=== PATIENT | male | born 1985 | race Caucasian/White ===

== ENCOUNTER 2022-06-29 06:05 | Observation (INO) ==
[2022-06-29 06:22] VITALS: BMI 31.1
[2022-06-29] MEDS ORDERED: ZOFRAN INJ 4 MG VIAL IVP ONE ×2 (06:24→06:58)
--- NOTE | 2022-06-29 06:25 | DR.CP ---
HPI <Marleni Coleman - Last Filed: 06/30/22 20:59> Time Seen Time Seen by Provider: 06/29/22 06:24 HPI Comment HPI Comment: In w/ reporting waking around 0300 this morning with epigastric/lower chest wall pain extending around to back, constant, 10/10 with n/v and one "soft" stool; no significant burping; no cough, fever, chills, previous episodes or alcohol since this past Monday; he tried baking soda and threw it back up; he does not smoke Complaint Chief Complaint:: Patient stated he's hurting in his epigastic area and around to his back and vomitting since 3am this morining COVID-19 Coronavirus risk:travel/contact w/high risk person: No Has patient experienced Coronavirus symptoms: No Source History Provided: Patient Mode of Arrival Mode of Arrival: Ambulatory Timing Onset of Chief Complaint: 06/29/22 PMH <Marleni Coleman - Last Filed: 06/30/22 20:59> PMH Past Medical History: No Past Surgical History: Yes Surgical History: Ortho Surgery Family History History of Family Medical Conditions: Yes Family Medical History: Diabetes Mellitus, Cancer, [place] and Hypertension Social History Does patient currently use any type of tobacco product: No Type of Tobacco Use: Smokeless Does any household member use tobacco: No Alcohol Use: None Do you use any recreational Drugs:: No Lives With: Spouse Lives Where: Home Travel Risk Coronavirus risk:travel/contact w/high risk person: No Has patient experienced Coronavirus symptoms: No Infectious screening In the last 2 months have you had wt loss of >10#?: NO Have you had fever, night sweats or hemotysis?: No Have you traveled outside the country in the last 6 months?: No Isolation: Standard ROS <Marleni Coleman - Last Filed: 06/30/22 20:59> Review of Systems Constitutional: No Symptoms Reported Eyes: No Symptoms Reported ENTM: No Symptoms Reported Respiratoy: No Symptoms Reported Cardiovascular: No Symptoms Reported Gastrointestinal/Abdominal: See HPI Genitourinary: No Symptoms Reported Neurological: No Symptoms Reported Musculoskeletal: No Symptoms Reported Integumentary: No Symptoms Reported Hematologic/Lymphatic: No Symptoms Reported Endocrine: No Symptoms Reported Psychiatric: No Symptoms Reported PE <Marleni Coleman - Last Filed: 06/30/22 20:59> Vitals Vitals: Temperature 98.4 F Pulse Rate [Left Brachial] 78 Pulse Rate 84 Respiratory Rate 20 Blood Pressure [Left Arm] 146/85 Blood Pressure 139/89 O2 Sat by Pulse Oximetry 98 General Limitations: No Limitations General Appearance: Alert, Anxious and Other (standing, moving around in obvious discomfort) Head Head Exam: Normal Inspection Eyes Eye exam: Normal Appearance ENT ENT Exam: Normal Exam Chest Chest Inspection: Normal Inspection Respiratory Respiratory Exam: Normal Lung Sounds Bilat Cardiovascular Cardiovascular Exam: Regular Rate and Normal Rhythm Pulse: Normal Edema: Normal Abdominal Exam Abdominal Exam: Normal Inspection, Normal Bowel Sounds and Soft Abdominal Tenderness: Epigastrium and Moderate Extremities Extremities Exam: Normal Inspection Back Back Exam: Normal Inspection Neurologic Neurological Exam: Alert and Oriented X3 Psychiatric Psychiatric Exam: Normal Affect and Normal Mood Skin Skin Exam: Warm, Dry, Intact and Normal Color <Gerry Narvaez - Last Filed: 06/29/22 12:09> Vitals Vitals: Temperature 98.4 F Pulse Rate [Left Brachial] 78 Pulse Rate 84 Respiratory Rate 20 Blood Pressure [Left Arm] 146/85 Blood Pressure 139/89 O2 Sat by Pulse Oximetry 98 COURSE <Marlnei Coleman - Last Filed: 06/30/22 20:59> Treatment Treatment: 0750 36 y/o nonsmoker with last etoh five days ago presents with sev ere epigastric pain radiating to back and n/v; improved w/morphine 4mg and zofran 8mg total; cardiac enzymes and lipase negative; ua pending; care to Dr Narvaez. Reevaluation 1st: Unchanged ROR <Marleni Coleman - Last Filed: 06/30/22 20:59> Labs Reviewed Laboratory Results Reviewed?: Yes Result Diagrams: 06/30/22 05:28 06/30/22 05:28 Laboratory: WBC 7.3 X10^3/uL (3.6-10.0) 06/29/22 06:34 RBC 5.38 X10^6/uL (4.7-6.0) 06/29/22 06:34 Hgb 15.6 g/dL (13.5-18.0) 06/29/22 06:34 Hct 43.9 % (42.0-54.0) 06/29/22 06:34 MCV 81.6 fL (80.0-100.0) 06/29/22 06:34 MCH 28.9 pg (27.0-34.0) 06/29/22 06:34 MCHC 35.5 g/dL (33.0-35.0) H 06/29/22 06:34 RDW 13.1 % (11.6-16.5) 06/29/22 06:34 Plt Count 205 X10^3/uL (150.0-450.0) 06/29/22 06:34 MPV 7.5 fL (7.4-11.0) 06/29/22 06:34 Neut % (Auto) 71.0 % (42.0-75.0) 06/29/22 06:34 Lymph % (Auto) 23.0 % (21.0-51.0) 06/29/22 06:34 [place] % (Auto) 4.6 % (0.0-13.0) 06/29/22 06:34 Eos % (Auto) 0.9 % (0.9-2.9) 06/29/22 06:34 Baso % (Auto) 0.5 % (0.2-1.0) 06/29/22 06:34 Neut # (Auto) 5.2 x10^3/uL (2.2-4.8) H 06/29/22 06:34 Lymph # (Auto) 1.7 X10^3/uL (1.3-2.9) 06/29/22 06:34 [place] # (Auto) 0.3 x10^3/uL (0.3-0.8) 06/29/22 06:34 Eos # (Auto) 0.1 x10^3/uL (0.0-0.2) 06/29/22 06:34 Baso # (Auto) 0.0 X10^3/uL (0.0-0.1) 06/29/22 06:34 Absolute Nucleated RBC 0.0 /100WBC 06/29/22 06:34 Sodium 143 mmol/L (136-145) 06/29/22 06:34 Corrected Sodium 144 mmol/L (136-145) 06/29/22 06:34 Potassium 3.5 mmol/L (3.5-5.1) 06/29/22 06:34 Chloride 104 mmol/L (98-107) 06/29/22 06:34 Carbon Dioxide 29.2 mmol/L (21-32) 06/29/22 06:34 BUN 16 mg/dL (7-18) 06/29/22 06:34 Creatinine 1.45 mg/dL (0.70-1.30) H 06/29/22 06:34 Est GFR (MDRD) Af Amer > 60 (>60) 06/29/22 06:34 Est GFR (MDRD) Non-Af 58 (>60) L 06/29/22 06:34 Glucose 139 mg/dL (65-99) H 06/29/22 06:34 Calcium 8.7 mg/dL (8.5-10.1) 06/29/22 06:34 Corrected Calcium TNP 06/29/22 06:34 Total Bilirubin 0.60 mg/dL (0.2-1.0) 06/29/22 06:34 AST 21 Units/L (15-37) 06/29/22 06:34 ALT 34 Units/L (12-78) 06/29/22 06:34 Alkaline Phosphatase 59 Units/L (46-116) 06/29/22 06:34 Creatine Kinase 135 Units/L (39-308) 06/29/22 06:34 Troponin I High Sens 9.1 ng/L (4.0-60.0) 06/29/22 06:34 Total Protein 7.6 g/dL (6.4-8.2) 06/29/22 06:34 Albumin 4.3 g/dL (3.4-5.0) 06/29/22 06:34 Globulin 3.3 g/dL (2.5-4.5) 06/29/22 06:34 Albumin/Globulin Ratio 1.3 Ratio (1.1-2.1) 06/29/22 06:34 Lipase 70 Units/L (73-393) L 06/29/22 06:34 Specimen Type Clean catch urine 06/29/22 07:45 Urine Color Yellow (YELLOW) 06/29/22 07:45 Urine Appearance Clear (CLEAR) 06/29/22 07:45 Urine pH 6.0 (5.0 - 8.0) 06/29/22 07:45 Ur Specific [place] 1.025 (1.000-1.030) 06/29/22 07:45 Urine Protein 2+ (NEGATIVE) 06/29/22 07:45 Urine Glucose (UA) Negative (NEGATIVE) 06/29/22 07:45 Urine Ketones Negative (NEGATIVE) 06/29/22 07:45 Urine Blood 1+ (NEGATIVE) 06/29/22 07:45 Urine Nitrite Negative (NEGATIVE) 06/29/22 07:45 Urine Bilirubin Negative (NEGATIVE) 06/29/22 07:45 Urine Urobilinogen Normal (NORMAL) 06/29/22 07:45 Ur Leukocyte Esterase Negative (NEGATIVE) 06/29/22 07:45 Urine RBC 0-2 /HPF (0-3) 06/29/22 07:45 Urine WBC 0-2 /HPF (0-5) 06/29/22 07:45 Ur Squamous Epith Cells Rare /HPF (NEGATIVE) 06/29/22 07:45 Calcium Oxalate Crystal Numerous /HPF (NEGATIVE) 06/29/22 07:45 Urine Bacteria Negative /HPF (NEGATIVE) 06/29/22 07:45 Ur Culture Indicated? No/not indicated 06/29/22 07:45 XRAY X-ray Results: cxr: 1. No acute cardiopulmonary process. gb us: 1.Small gallstones without evidence of acute gallbladder inflammation. ct abd/pelvis: Subtle densities in the gallbladder suspicious for cholelithiasis. Consider right upper quadrant ultrasound for further evaluation as clinically warranted. <Gerry Narvaez - Last Filed: 06/29/22 12:09> Labs Reviewed Laboratory: WBC 7.3 X10^3/uL (3.6-10.0) 06/29/22 06:34 RBC 5.38 X10^6/uL (4.7-6.0) 06/29/22 06:34 Hgb 15.6 g/dL (13.5-18.0) 06/29/22 06:34 Hct 43.9 % (42.0-54.0) 06/29/22 06:34 MCV 81.6 fL (80.0-100.0) 06/29/22 06:34 MCH 28.9 pg (27.0-34.0) 06/29/22 06:34 MCHC 35.5 g/dL (33.0-35.0) H 06/29/22 06:34 RDW 13.1 % (11.6-16.5) 06/29/22 06:34 Plt Count 205 X10^3/uL (150.0-450.0) 06/29/22 06:34 MPV 7.5 fL (7.4-11.0) 06/29/22 06:34 Neut % (Auto) 71.0 % (42.0-75.0) 06/29/22 06:34 Lymph % (Auto) 23.0 % (21.0-51.0) 06/29/22 06:34 [place] % (Auto) 4.6 % (0.0-13.0) 06/29/22 06:34 Eos % (Auto) 0.9 % (0.9-2.9) 06/29/22 06:34 Baso % (Auto) 0.5 % (0.2-1.0) 06/29/22 06:34 Neut # (Auto) 5.2 x10^3/uL (2.2-4.8) H 06/29/22 06:34 Lymph # (Auto) 1.7 X10^3/uL (1.3-2.9) 06/29/22 06:34 [place] # (Auto) 0.3 x10^3/uL (0.3-0.8) 06/29/22 06:34 Eos # (Auto) 0.1 x10^3/uL (0.0-0.2) 06/29/22 06:34 Baso # (Auto) 0.0 X10^3/uL (0.0-0.1) 06/29/22 06:34 Absolute Nucleated RBC 0.0 /100WBC 06/29/22 06:34 Sodium 143 mmol/L (136-145) 06/29/22 06:34 Corrected Sodium 144 mmol/L (136-145) 06/29/22 06:34 Potassium 3.5 mmol/L (3.5-5.1) 06/29/22 06:34 Chloride 104 mmol/L (98-107) 06/29/22 06:34 Carbon Dioxide 29.2 mmol/L (21-32) 06/29/22 06:34 BUN 16 mg/dL (7-18) 06/29/22 06:34 Creatinine 1.45 mg/dL (0.70-1.30) H 06/29/22 06:34 Est GFR (MDRD) Af Amer > 60 (>60) 06/29/22 06:34 Est GFR (MDRD) Non-Af 58 (>60) L 06/29/22 06:34 Glucose 139 mg/dL (65-99) H 06/29/22 06:34 Calcium 8.7 mg/dL (8.5-10.1) 06/29/22 06:34 Corrected Calcium TNP 06/29/22 06:34 Total Bilirubin 0.60 mg/dL (0.2-1.0) 06/29/22 06:34 AST 21 Units/L (15-37) 06/29/22 06:34 ALT 34 Units/L (12-78) 06/29/22 06:34 Alkaline Phosphatase 59 Units/L (46-116) 06/29/22 06:34 Creatine Kinase 135 Units/L (39-308) 06/29/22 06:34 Troponin I High Sens 9.1 ng/L (4.0-60.0) 06/29/22 06:34 Total Protein 7.6 g/dL (6.4-8.2) 06/29/22 06:34 Albumin 4.3 g/dL (3.4-5.0) 06/29/22 06:34 Globulin 3.3 g/dL (2.5-4.5) 06/29/22 06:34 Albumin/Globulin Ratio 1.3 Ratio (1.1-2.1) 06/29/22 06:34 Lipase 70 Units/L (73-393) L 06/29/22 06:34 Specimen Type Clean catch urine 06/29/22 07:45 Urine Color Yellow (YELLOW) 06/29/22 07:45 Urine Appearance Clear (CLEAR) 06/29/22 07:45 Urine pH 6.0 (5.0 - 8.0) 06/29/22 07:45 Ur Specific [place] 1.025 (1.000-1.030) 06/29/22 07:45 Urine Protein 2+ (NEGATIVE) 06/29/22 07:45 Urine Glucose (UA) Negative (NEGATIVE) 06/29/22 07:45 Urine Ketones Negative (NEGATIVE) 06/29/22 07:45 Urine Blood 1+ (NEGATIVE) 06/29/22 07:45 Urine Nitrite Negative (NEGATIVE) 06/29/22 07:45 Urine Bilirubin Negative (NEGATIVE) 06/29/22 07:45 Urine Urobilinogen Normal (NORMAL) 06/29/22 07:45 Ur Leukocyte Esterase Negative (NEGATIVE) 06/29/22 07:45 Urine RBC 0-2 /HPF (0-3) 06/29/22 07:45 Urine WBC 0-2 /HPF (0-5) 06/29/22 07:45 Ur Squamous Epith Cells Rare /HPF (NEGATIVE) 06/29/22 07:45 Calcium Oxalate Crystal Numerous /HPF (NEGATIVE) 06/29/22 07:45 Urine Bacteria Negative /HPF (NEGATIVE) 06/29/22 07:45 Ur Culture Indicated? No/not indicated 06/29/22 07:45 Opioid <Marleni Coleman - Last Filed: 06/30/22 20:59> Opioid Risk Tool Age (Tony box if 16-45): Yes History of Preadolescent Sexual Abuse: No Total: 1 Total Score Risk Category: Low Risk Copyright: Yonny FREY predicting aberrant behaviors <Gerry Narvaez - Last Filed: 06/29/22 12:09> Opioid Risk Tool Total: 1 Total Score Risk Category: Low Risk Discharge Plan Diagnosis Discharge Problem: Epigastric pain, Cholelithiasis Discharge Plan Patient Disposition: ADMITTED INPATIENT Condition: Stable Orders to Discharge Patient Discharge Orders: Discharge (Routine); Ordered 06/30/22 Ordered By: DONALD DAVIS
[2022-06-29] MEDS ORDERED: ZOFRAN INJ 4 MG VIAL ONE ×3 (06:28→15:26)
--- NOTE | 2022-06-29 06:36 | EKG ---
Test Reason : cp/epigastric pain Blood Pressure : */* mmHG Vent. Rate : 72 BPM Atrial Rate : 72 BPM P-R Int : 148 ms QRS Dur : 102 ms QT Int : 408 ms P-R-T Axes : 45 39 6 degrees QTc Int : 446 ms Normal sinus rhythm Possible Inferior infarct , age undetermined Abnormal ECG No previous ECGs available Confirmed by Vance Apodaca ([id number]) on 06/30/2022 1:17:10 PM Referred By: Confirmed By: Vance Apodaca
[2022-06-29] MEDS ORDERED: MORPHINE SULFATE INJ 2 MG INJ ONE ×2 (06:38→07:02)
[2022-06-29] MEDS: MORPHINE SULFATE INJ 2 MG INJ IVP ONE ×2 (06:42→06:43)
[2022-06-29 06:44] LABS: BASOPHILS % (AUTO) 0.5 % (0.2-1.0); EOSINOPHILS # (AUTO) 0.1 x10^3/uL (0.0-0.2); EOSINOPHILS % (AUTO) 0.9 % (0.9-2.9); HEMATOCRIT 43.9 % (42.0-54.0); HEMOGLOBIN 15.6 g/dL (13.5-18.0); LYMPHOCYTES # (AUTO) 1.7 X10^3/uL (1.3-2.9); MEAN CORPUSCULAR HEMOGLOBIN 28.9 pg (27.0-34.0); MEAN CORPUSCULAR HGB CONC 35.5 g/dL (33.0-35.0); MEAN CORPUSCULAR VOLUME 81.6 fL (80.0-100.0); MEAN PLATELET VOLUME 7.5 fL (7.4-11.0); MONOCYTES # (AUTO) 0.3 x10^3/uL (0.3-0.8); MONOCYTES % (AUTO) 4.6 % (0.0-13.0); NEUTROPHILS # (AUTO) 5.2 x10^3/uL (2.2-4.8); RED BLOOD COUNT 5.38 X10^6/uL (4.7-6.0); RED CELL DISTRIBUTION WIDTH 13.1 % (11.6-16.5); WHITE BLOOD COUNT 7.3 X10^3/uL (3.6-10.0)
[2022-06-29 06:56] LABS: ALANINE AMINOTRANSFERASE 34 Units/L (12-78); ALBUMIN 4.3 g/dL (3.4-5.0); ALKALINE PHOSPHATASE 59 Units/L (46-116); ASPARTATE AMINO TRANSFERASE 21 Units/L (15-37); BLOOD UREA NITROGEN 16 mg/dL (7-18); CALCIUM 8.7 mg/dL (8.5-10.1); CARBON DIOXIDE 29.2 mmol/L (21-32); CHLORIDE 104 mmol/L (98-107); COR NA(FOR HYPERGLY) 144 mmol/L (136-145); CREATINE KINASE 135 Units/L (39-308); CREATININE 1.45 mg/dL (0.70-1.30); LIPASE 70 Units/L (73-393); SODIUM 143 mmol/L (136-145); TOTAL PROTEIN 7.6 g/dL (6.4-8.2); eGFR NON BLACK RACES 58 (>60)
[2022-06-29] MEDS ORDERED: MORPHINE SULFATE INJ 2 MG INJ IVP ONE (06:56)
[2022-06-29] MEDS ORDERED: NS 1,000 ML IV 1,000 ML IV ONE (06:58)
[2022-06-29] MEDS ORDERED: NS 1,000 ML IV 1,000 ML ONE (07:02)
[2022-06-29 08:01] LABS: BILIRUBIN,URINE NEGATIVE (NEGATIVE); BLOOD/HEMOGLOBIN,URINE 1+ (NEGATIVE); GLUCOSE, URINE NEGATIVE (NEGATIVE); KETONES,URINE NEGATIVE (NEGATIVE); LEUKOCYTE ESTERASE ,URINE NEGATIVE (NEGATIVE); NITRITES,URINE NEGATIVE (NEGATIVE); PROTEIN,URINE 2+ (NEGATIVE); UROBILINOGEN,URINE NORMAL (NORMAL)
[2022-06-29] MEDS ORDERED: NS 100 ML IV 100 ML ONE ×2 (08:25→14:22)
[2022-06-29 08:26] LABS: APPEARANCE,URINE CLEAR (CLEAR); COLOR,URINE YELLOW (YELLOW)
[2022-06-29 08:27] LABS: BACTERIA,URINE NEGATIVE /HPF (NEGATIVE); CALCIUM OXALATE CRYSTALS,UR NUMEROUS /HPF (NEGATIVE); RBC,URINE 0-2 /HPF (0-3); SQUAMOUS EPITHELIAL CELL,UR RARE /HPF (NEGATIVE)
--- NOTE | 2022-06-29 08:57 | CT ---
HISTORYEPIGASTRIC PAINSTUDYABDOMEN/PELVIS WITH CONCOMPARISONNone.TECHNIQUEMultiple axial images of the abdomen and pelvis were obtained from the lung bases to the pubic symphysis after the administration of IV contrast. Dose reduction techniques including Automated Exposure Control (AEC) and adjustment of mA and kV were utilized.FINDINGSLung bases demonstrate minimal subsegmental atelectasis. The heart is normal in size. There are subtle density within the gallbladder suspicious for cholelithiasis. The liver, spleen, pancreas, adrenal glands, and kidneys have a benign appearance. There is the right upper pole renal cyst that measures 8 mm image 34 series 3. The urinary bladder appears benign. The prostate is normal in size. Negative for diverticulitis. The appendix is normal. Negative for bowel obstruction. Non-atherosclerotic normal caliber abdominal aorta. Portal vein is patent. No pathologic adenopathy. No free air, free fluid or collection. No acute osseous abnormality.IMPRESSIONSubtle densities in the gallbladder suspicious for cholelithiasis. Consider right upper quadrant ultrasound for further evaluation as clinically warrantedElectronically signed by: Dao Mcdaniels (Jun 29, 2022 08:56:25)
--- NOTE | 2022-06-29 09:27 | DR.ABDMALE ---
HPI Time seen Time Seen by Provider: 06/29/22 06:24 Complaint Chief Complaint Doctors Comments: THIS PATIENT WAS SIGNED OUT TO ME BY DR MOCTEZUMA. HE STATES THAT HE HAS HAD RUQ ABDOMINAL PAIN SINCE 3 AM THAT IS 6 AND 1/2 HOURS AGO. ALSO HAS NAUSEA.HAD BEEN GIVE 6MG MORPHINE IV PRIOR TO MY EVALUATION FOR PAIN. I ORDERED A CT OF ABD/PELVIS WITH IV CONTRAST AND HE HAD STONES IN THE GALLBLADDER. AN ULTRASOUND OF RUQ WAS THEN ORDERED. Chief Complaint:: Patient stated he's hurting in his epigastic area and around to his back and vomitting since 3am this morining COVID-19 Coronavirus risk:travel/contact w/high risk person: No Has patient experienced Coronavirus symptoms: No Mode of arrival Mode of Arrival: Ambulatory Timing Onset of Chief Complaint: 06/29/22 PMH PMH Past Medical History: No Past Surgical History: Yes Surgical History: Ortho Surgery Family History History of Family Medical Conditions: Yes Family Medical History: Diabetes Mellitus, Cancer, [place] and Hypertension Social History Does patient currently use any type of tobacco product: No Type of Tobacco Use: Smokeless Does any household member use tobacco: No Alcohol Use: None Do you use any recreational Drugs:: No Lives With: Spouse Lives Where: Home Travel Risk Coronavirus risk:travel/contact w/high risk person: No Has patient experienced Coronavirus symptoms: No Infectious screening In the last 2 months have you had wt loss of >10#?: NO Have you had fever, night sweats or hemotysis?: No Have you traveled outside the country in the last 6 months?: No Isolation: Standard ROS Review of Systems Constitutional: Other (ABDOMINAL PAIN WITH NAUSEA.) Eyes: No Symptoms Reported ENTM: No Symptoms Reported Respiratoy: No Symptoms Reported Cardiovascular: No Symptoms Reported Gastrointestinal/Abdominal: Abdominal Pain and Nausea Genitourinary: No Symptoms Reported Neurological: No Symptoms Reported Musculoskeletal: No Symptoms Reported Integumentary: No Symptoms Reported Hematologic/Lymphatic: No Symptoms Reported Endocrine: No Symptoms Reported Psychiatric: No Symptoms Reported PE Vital Signs Vital Signs: Temp Pulse Pulse Resp BP BP Pulse Ox 06/29/22 12:00 98.4 F 78 20 146/85 98 06/29/22 10:42 98.6 F 06/29/22 07:11 22 06/29/22 06:43 22 06/29/22 06:17 98.9 F 84 24 139/89 99 O2 Del Method 06/29/22 12:00 Room Air 06/29/22 10:42 06/29/22 07:11 06/29/22 06:43 06/29/22 06:17 Room Air General Limitations: No Limitations General Appearance: In Distress (MODERATE DISTRESS) Head Head Exam: Normal Inspection, Atraumatic and Normocephalic Eyes Eye exam: Normal Appearance, PERRL and EOMI ENT ENT Exam: Normal Exam, Normal Oropharynx and Normal External Ear Exam Neck Neck Exam: Normal Inspection, Full ROM and Trachea Midline Chest Chest Inspection: Normal Inspection and Symmetric Chest Wall Rise Respiratory Respiratory Exam: Normal Lung Sounds Bilat Respiratory Exam: Bilateral: Clear to Auscultation Cardiovascular Cardiovascular Exam: Regular Rate and Normal Rhythm Abdominal Exam Abdominal Exam: Soft and Tenderness (RUQ) Abdominal Tenderness: RUQ Rectal Rectal Exam: Deferred Back Back Exam: Normal Inspection and Full ROM Extremeties Extremities Exam: Normal Inspection and Full ROM Exam: Male: Deferred Neurologic Neurological Exam: Alert and CN II-XII Intact Skin Skin Exam: Warm, Dry and Intact MDM Differential Diagnosis Differential Diagnosis: Cholcystitis, Cholelethiasis and Gastritus/PUD COURSE Treatment Treatment: PATIENT CONTINUED TO HAVE ABDOMINAL PAIN AND NAUSEA ANFER 6MG OF MORPHINE IV AND ZOFRAN 4MG IV. HE HAD ACT OF ABD/PELVIS THAT SHOWED GALLSTONE. HE SUBSEQUENTLY HAD US OR RUQ THAT SHOWED MANY GALLSTONES BUT NO DILITATION OF THE BILE DUCT. DR NINA WAS CALLED AT 1035 AND HE INITIALLY STATED TO DISCHARGE THE PATIENT ON PROTONIX AND PAIN MEDICATIONS SINCE HE WAS AFEBRILE AND DID NOT HAVE ELEVATED WBC. THE PATIENT CONTINUED TO HAVE INCREASED PAIN AND NAUSEA AND DR NINA WAS CALLED BACK AND HE STATED TO PUT THE PATIENT IN THE HOSPITAL AND GIVE FLUIDS,ZOFRAN AND PAIN MEDCATION AND GET A CHEST XRAY AND EKG. THE EKG WAS NSR AND THE CHEST XRAY WAS NORMAL. THE PATIENT IS REFERED TO OBSERVATION TO DR NINA.THE PATIENT WAS TOLD OF THE INTENT AND IS AGGREABLE TO THE OBSERVATION. ROR Labs Reviewed Laboratory Results Reviewed?: Yes Result Diagrams: 06/30/22 05:28 06/30/22 05:28 Laboratory: WBC 7.3 X10^3/uL (3.6-10.0) 06/29/22 06:34 RBC 5.38 X10^6/uL (4.7-6.0) 06/29/22 06:34 Hgb 15.6 g/dL (13.5-18.0) 06/29/22 06:34 Hct 43.9 % (42.0-54.0) 06/29/22 06:34 MCV 81.6 fL (80.0-100.0) 06/29/22 06:34 MCH 28.9 pg (27.0-34.0) 06/29/22 06:34 MCHC 35.5 g/dL (33.0-35.0) H 06/29/22 06:34 RDW 13.1 % (11.6-16.5) 06/29/22 06:34 Plt Count 205 X10^3/uL (150.0-450.0) 06/29/22 06:34 MPV 7.5 fL (7.4-11.0) 06/29/22 06:34 Neut % (Auto) 71.0 % (42.0-75.0) 06/29/22 06:34 Lymph % (Auto) 23.0 % (21.0-51.0) 06/29/22 06:34 [place] % (Auto) 4.6 % (0.0-13.0) 06/29/22 06:34 Eos % (Auto) 0.9 % (0.9-2.9) 06/29/22 06:34 Baso % (Auto) 0.5 % (0.2-1.0) 06/29/22 06:34 Neut # (Auto) 5.2 x10^3/uL (2.2-4.8) H 06/29/22 06:34 Lymph # (Auto) 1.7 X10^3/uL (1.3-2.9) 06/29/22 06:34 [place] # (Auto) 0.3 x10^3/uL (0.3-0.8) 06/29/22 06:34 Eos # (Auto) 0.1 x10^3/uL (0.0-0.2) 06/29/22 06:34 Baso # (Auto) 0.0 X10^3/uL (0.0-0.1) 06/29/22 06:34 Absolute Nucleated RBC 0.0 /100WBC 06/29/22 06:34 Sodium 143 mmol/L (136-145) 06/29/22 06:34 Corrected Sodium 144 mmol/L (136-145) 06/29/22 06:34 Potassium 3.5 mmol/L (3.5-5.1) 06/29/22 06:34 Chloride 104 mmol/L (98-107) 06/29/22 06:34 Carbon Dioxide 29.2 mmol/L (21-32) 06/29/22 06:34 BUN 16 mg/dL (7-18) 06/29/22 06:34 Creatinine 1.45 mg/dL (0.70-1.30) H 06/29/22 06:34 Est GFR (MDRD) Af Amer > 60 (>60) 06/29/22 06:34 Est GFR (MDRD) Non-Af 58 (>60) L 06/29/22 06:34 Glucose 139 mg/dL (65-99) H 06/29/22 06:34 Calcium 8.7 mg/dL (8.5-10.1) 06/29/22 06:34 Corrected Calcium TNP 06/29/22 06:34 Total Bilirubin 0.60 mg/dL (0.2-1.0) 06/29/22 06:34 AST 21 Units/L (15-37) 06/29/22 06:34 ALT 34 Units/L (12-78) 06/29/22 06:34 Alkaline Phosphatase 59 Units/L (46-116) 06/29/22 06:34 Creatine Kinase 135 Units/L (39-308) 06/29/22 06:34 Troponin I High Sens 9.1 ng/L (4.0-60.0) 06/29/22 06:34 Total Protein 7.6 g/dL (6.4-8.2) 06/29/22 06:34 Albumin 4.3 g/dL (3.4-5.0) 06/29/22 06:34 Globulin 3.3 g/dL (2.5-4.5) 06/29/22 06:34 Albumin/Globulin Ratio 1.3 Ratio (1.1-2.1) 06/29/22 06:34 Lipase 70 Units/L (73-393) L 06/29/22 06:34 Specimen Type Clean catch urine 06/29/22 07:45 Urine Color Yellow (YELLOW) 06/29/22 07:45 Urine Appearance Clear (CLEAR) 06/29/22 07:45 Urine pH 6.0 (5.0 - 8.0) 06/29/22 07:45 Ur Specific [place] 1.025 (1.000-1.030) 06/29/22 07:45 Urine Protein 2+ (NEGATIVE) 06/29/22 07:45 Urine Glucose (UA) Negative (NEGATIVE) 06/29/22 07:45 Urine Ketones Negative (NEGATIVE) 06/29/22 07:45 Urine Blood 1+ (NEGATIVE) 06/29/22 07:45 Urine Nitrite Negative (NEGATIVE) 06/29/22 07:45 Urine Bilirubin Negative (NEGATIVE) 06/29/22 07:45 Urine Urobilinogen Normal (NORMAL) 06/29/22 07:45 Ur Leukocyte Esterase Negative (NEGATIVE) 06/29/22 07:45 Urine RBC 0-2 /HPF (0-3) 06/29/22 07:45 Urine WBC 0-2 /HPF (0-5) 06/29/22 07:45 Ur Squamous Epith Cells Rare /HPF (NEGATIVE) 06/29/22 07:45 Calcium Oxalate Crystal Numerous /HPF (NEGATIVE) 06/29/22 07:45 Urine Bacteria Negative /HPF (NEGATIVE) 06/29/22 07:45 Ur Culture Indicated? No/not indicated 06/29/22 07:45 Opioid Opioid Risk Tool Age (Tony box if 16-45): Yes History of Preadolescent Sexual Abuse: No Total: 1 Total Score Risk Category: Low Risk Copyright: Yonny FREY predicting aberrant behaviors Discharge Plan Diagnosis Discharge Problem: Epigastric pain, Cholelithiasis Discharge Plan Patient Disposition: 09 ADMITTED INPATIENT Condition: Stable
[2022-06-29] MEDS ORDERED: PROTONIX INJ 40 MG VIAL IVP ONE (10:14)
[2022-06-29] MEDS ORDERED: PROTONIX INJ 40 MG VIAL ONE (10:19)
--- NOTE | 2022-06-29 10:24 | US ---
GALL BLADDERHISTORY: Right upper quadrant painComparison: NoneTechnique: Multiple weeks scale and color flow Doppler images of the abdomen were obtained.Findings:Overall study is limited by overlying bowel gas. The liver is normal in echotexture and size. No focal mass. No intrahepatic bile duct dilatation. Gallstones present.No pericholecystic fluid or gallbladder wall thickening. The technologist did not report a positive sonographic Abdi's sign. The common bile duct measures 4 mm.The right kidney measures 12.3 cm. No focal mass, hydronephrosis, or stones identified.IMPRESSION:1.Small gallstones without evidence of acute gallbladder inflammation.Electronically signed by: MALAIKA MORATAYA (Jun 29, 2022 10:23:02)
--- NOTE | 2022-06-29 11:23 | EKG ---
Test Reason : PRESURGICAL Blood Pressure : */* mmHG Vent. Rate : 62 BPM Atrial Rate : 62 BPM P-R Int : 162 ms QRS Dur : 100 ms QT Int : 418 ms P-R-T Axes : 23 30 40 degrees QTc Int : 424 ms Normal sinus rhythm Nonspecific T wave abnormality Abnormal ECG When compared with ECG of 29-JUN-2022 06:34, (Unconfirmed) Nonspecific T wave abnormality has replaced inverted T waves in Inferior leads Confirmed by Vance Apodaca ([id number]) on 06/30/2022 1:17:01 PM Referred By: Confirmed By: Vance Apodaca
[2022-06-29] MEDS ORDERED: MORPHINE SULFATE INJ 2 MG INJ IVP PRN (12:02)
[2022-06-29] MEDS ORDERED: ZOFRAN INJ 4 MG VIAL IVP PRN ×2 (12:02→16:02)
[2022-06-29] MEDS ORDERED: D5 1/2 NS 1,000 ML 1,000 ML IV ONE (12:28)
[2022-06-29] MEDS ORDERED: NS 1,000 ML IV 1,000 ML IV SCH (13:00)
--- NOTE | 2022-06-29 13:30 | RAD ---
CHEST, 1 VIEWHISTORY: PRE OP GBStudy: Single view of the chest.Comparison:NoneFindings:The cardiomediastinal silhouette is normal.No focal consolidations, pleural effusions or pneumothorax. Osseous structures demonstrate no acute abnormality.IMPRESSION:1. No acute cardiopulmonary process.Electronically signed by: MALAIKA MORATAYA (Jun 29, 2022 13:28:13)
[2022-06-29] MEDS ORDERED: BACTROBAN TOPICAL OINT ONE (13:58)
[2022-06-29] MEDS ORDERED: ANCEF VIAL 1 GRAM ONE (14:21)
[2022-06-29] MEDS ORDERED: LR 1,000 ML IV 1,000 ML IV ONE (14:22)
[2022-06-29] MEDS ORDERED: VERSED ONE (14:32)
[2022-06-29] MEDS ORDERED: FENTANYL VIAL INJ 250 mcg ONE (14:32)
[2022-06-29] MEDS ORDERED: DIPRIVAN VIAL 20 ML ONE (14:34)
[2022-06-29] MEDS ORDERED: SUPRANE ONE (14:34)
[2022-06-29] MEDS ORDERED: QUELICIN (OR ANECTINE) ONE (14:39)
[2022-06-29] MEDS ORDERED: ZEMURON 100 MG VIAL ONE (14:39)
[2022-06-29] MEDS ORDERED: BRIDION ONE (15:23)
[2022-06-29] MEDS ORDERED: DILAUDID INJ ONE (15:31)
[2022-06-29] MEDS ORDERED: LEVAQUIN PREMIX IV 500 MG 500 MG/100 ML BAG IV ONE (15:44)
[2022-06-29] MEDS ORDERED: REGLAN INJ 10 MG VIAL IVP PRN (16:02)
[2022-06-29] MEDS ORDERED: BARHEMSYS INJ IVP PRN (16:02)
[2022-06-29] MEDS ORDERED: BENADRYL INJ 50 MG VIAL IVP PRN (16:02)
[2022-06-29] MEDS ORDERED: DILAUDID INJ IVP PRN ×2 (16:02→16:09)
[2022-06-29] MEDS: D5 1/2 NS 1,000 ML 1,000 ML IV SCH ×2 (18:39→23:59)
[2022-06-29] MEDS: ANCEF VIAL 1 GRAM 2 G in NS 100 ML IV 100 ML IV SCH (21:35)
[2022-06-29] MEDS ORDERED: ANCEF VIAL 1 GRAM IVP SCH (22:00)
[2022-06-30] MEDS: ANCEF VIAL 1 GRAM 2 G in NS 100 ML IV 100 ML IV SCH (05:15)
[2022-06-30] MEDS: D5 1/2 NS 1,000 ML 1,000 ML IV SCH (05:26)
[2022-06-30 05:41] LABS: BASOPHILS % (AUTO) 0.2 % (0.2-1.0); EOSINOPHILS # (AUTO) 0.1 x10^3/uL (0.0-0.2); EOSINOPHILS % (AUTO) 1.3 % (0.9-2.9); HEMATOCRIT 40.5 % (42.0-54.0); HEMOGLOBIN 14.2 g/dL (13.5-18.0); LYMPHOCYTES # (AUTO) 1.5 X10^3/uL (1.3-2.9); LYMPHOCYTES % (AUTO) 26.9 % (21.0-51.0); MEAN CORPUSCULAR HEMOGLOBIN 28.7 pg (27.0-34.0); MEAN CORPUSCULAR VOLUME 81.8 fL (80.0-100.0); MEAN PLATELET VOLUME 7.6 fL (7.4-11.0); MONOCYTES # (AUTO) 0.5 x10^3/uL (0.3-0.8); MONOCYTES % (AUTO) 8.7 % (0.0-13.0); NEUTROPHILS # (AUTO) 3.5 x10^3/uL (2.2-4.8); NEUTROPHILS % (AUTO) 62.9 % (42.0-75.0); RED BLOOD COUNT 4.95 X10^6/uL (4.7-6.0); RED CELL DISTRIBUTION WIDTH 12.9 % (11.6-16.5); WHITE BLOOD COUNT 5.5 X10^3/uL (3.6-10.0)
[2022-06-30 05:55] LABS: ALANINE AMINOTRANSFERASE 415 Units/L (12-78); ALBUMIN 3.6 g/dL (3.4-5.0); ALKALINE PHOSPHATASE 104 Units/L (46-116); ASPARTATE AMINO TRANSFERASE 380 Units/L (15-37); BLOOD UREA NITROGEN 9 mg/dL (7-18); CALCIUM 8.5 mg/dL (8.5-10.1); CARBON DIOXIDE 29.5 mmol/L (21-32); CHLORIDE 103 mmol/L (98-107); COR NA(FOR HYPERGLY) 140 mmol/L (136-145); CREATININE 1.23 mg/dL (0.70-1.30); SODIUM 140 mmol/L (136-145); TOTAL PROTEIN 6.7 g/dL (6.4-8.2); eGFR NON BLACK RACES > 60 (>60)
[2022-06-30 08:02] VITALS: BP 120/76
[2022-06-30] MEDS ORDERED: PROTONIX INJ 40 MG VIAL IVP SCH (09:00)
== END 2022-06-30 10:30 | disposition home or self-care (01) ==
LOC: ER 06:09 → MED/SURG 06:09
PROVIDERS: ADMIT Surgery; ATTEND Surgery